=== PATIENT | female | born 1985 | race Caucasian/White ===

== ENCOUNTER → 2024-08-20 16:00 | Outpatient (REF) | payer BC, SELFPAY | LOC: PNTC 16:00 | PROVIDERS: ATTENDING PHYSICIAN Obstetrics & Gynecology | DX: O09.529 Supervision of elderly multigravida, unspecified trimester (principal); O14.90 Unspecified pre-eclampsia, unspecified trimester; O35.5XX0 Maternal care for (suspected) damage to fetus by drugs, not applicable or unspecified; O34.219 Maternal care for unspecified type scar from previous cesarean delivery | CPT/HCPCS: 76816 ==

== ENCOUNTER → 2024-08-31 08:01 | Outpatient (REF) | payer BC, SELFPAY | LOC: PNTC 08:01 | PROVIDERS: ATTENDING PHYSICIAN Obstetrics & Gynecology | DX: O43.219 Placenta accreta, unspecified trimester (principal) | CPT/HCPCS: 93976 ==

== ENCOUNTER → 2024-09-28 15:33 | Outpatient (REF) | payer BC, SELFPAY ==
[2024-09-28 16:10] LABS: % Basophils 0.1 % (0-2); % Eosinophils 2.2 % (0-6); % Immature Granulocytes 0.6 % (0-0.5); % Lymphocytes 12.4 % (20.5-51.1); % Monocytes 4.7 % (1.7-9.3); Absolute Eosinophils 0.2 10^3/uL (0-0.7); Absolute Immature Granulocytes 0.1 10^3/uL (0-0.05); Absolute Lymphocytes 1.2 10^3/uL (1.2-3.4); Absolute Monocytes 0.5 10^3/uL (0.1-0.6); Absolute Neutrophils 7.8 10^3/uL (1.4-6.5); Hematocrit 31.6 % (37.0-47.0); Hemoglobin 9.3 g/dL (12.0-16.0); Mean Corp Hgb Conc. 29.4 g/dL (33.0-37.0); Mean Corpuscular Hgb 22.1 pg (27.0-31.0); Mean Corpuscular Volume 75.1 fL (81.0-99.0); Mean Platelet Volume 11.3 fL (7.4-10.4); Nucleated Red Blood Cells % 0 %; Platelet Count 217 10^3/uL (130-400); Red Blood Cell Count 4.21 10^6/uL (4.20-5.40); Red Cell Dist. Width 16.7 % (11.5-14.5); White Blood Cell Count 9.8 10^3/uL (4.8-10.8)
== END ==
LOC: OIDL 15:33
PROVIDERS: ATTENDING PHYSICIAN Internal Medicine Hematology & Oncology
DX: D64.9 Anemia, unspecified (principal)
CPT/HCPCS: 85025

== ENCOUNTER → 2024-09-28 16:53 | Outpatient (REF) | payer BC, SELFPAY | LOC: PNTC 16:53 | PROVIDERS: ATTENDING PHYSICIAN Obstetrics & Gynecology | DX: O09.529 Supervision of elderly multigravida, unspecified trimester (principal); O14.90 Unspecified pre-eclampsia, unspecified trimester; O35.5XX0 Maternal care for (suspected) damage to fetus by drugs, not applicable or unspecified; O34.219 Maternal care for unspecified type scar from previous cesarean delivery | CPT/HCPCS: 76816; 93976 ==

== ENCOUNTER → 2024-10-19 15:53 | Outpatient (REF) | payer BC, SELFPAY ==
[2024-10-19 15:03] LABS: % Basophils 0.3 % (0-2); % Eosinophils 2.2 % (0-6); % Immature Granulocytes 0.3 % (0-0.5); % Lymphocytes 14.1 % (20.5-51.1); % Monocytes 5.1 % (1.7-9.3); Absolute Eosinophils 0.1 10^3/uL (0-0.7); Absolute Lymphocytes 0.9 10^3/uL (1.2-3.4); Absolute Monocytes 0.3 10^3/uL (0.1-0.6); Absolute Neutrophils 4.9 10^3/uL (1.4-6.5); Hematocrit 34.1 % (37.0-47.0); Hemoglobin 10.6 g/dL (12.0-16.0); Mean Corp Hgb Conc. 31.1 g/dL (33.0-37.0); Mean Corpuscular Hgb 23.9 pg (27.0-31.0); Platelet Count 179 10^3/uL (130-400); Red Blood Cell Count 4.43 10^6/uL (4.20-5.40); Red Cell Dist. Width 21.6 % (11.5-14.5); White Blood Cell Count 6.3 10^3/uL (4.8-10.8)
== END ==
LOC: OIDL 15:53
PROVIDERS: ATTENDING PHYSICIAN Internal Medicine Hematology & Oncology
DX: D64.9 Anemia, unspecified (principal)
CPT/HCPCS: 85025

== ENCOUNTER 2024-10-30 19:27 | Observation (INO) | payer BC, SELFPAY ==
[2024-10-30 19:53] VITALS: BP 117/84; BMI 37.0
== END 2024-10-30 22:48 | disposition home or self-care (01) ==
LOC: LDRP 19:27
PROVIDERS: ADMITTING PHYSICIAN Obstetrics & Gynecology
DX: O47.1 False labor at or after 37 completed weeks of gestation (principal); Z3A.38 38 weeks gestation of pregnancy; O99.013 Anemia complicating pregnancy, third trimester; D64.9 Anemia, unspecified; O99.820 Streptococcus B carrier state complicating pregnancy; O09.43 Supervision of pregnancy with grand multiparity, third trimester
CPT/HCPCS: 59899; G0378

== ENCOUNTER 2024-11-07 07:23 | Inpatient (IN) | payer BC, SELFPAY ==
[2024-11-07 07:39] VITALS: BP 123/90; BMI 37.2
[2024-11-07] MEDS: PENICILLIN 110 UNITS IV (08:09)
[2024-11-07] MEDS: LR 1000 IV ×3 (08:09→14:35)
[2024-11-07 08:31] LABS: % Basophils 0.2 % (0-2); % Immature Granulocytes 0.3 % (0-0.5); % Lymphocytes 17.5 % (20.5-51.1); % Monocytes 5.3 % (1.7-9.3); % Neutrophils 73.7 % (42.2-75.2); Absolute Eosinophils 0.2 10^3/uL (0-0.7); Absolute Lymphocytes 1.2 10^3/uL (1.2-3.4); Absolute Monocytes 0.4 10^3/uL (0.1-0.6); Absolute Neutrophils 4.8 10^3/uL (1.4-6.5); Hematocrit 35.2 % (37.0-47.0); Hemoglobin 11.1 g/dL (12.0-16.0); Mean Corp Hgb Conc. 31.5 g/dL (33.0-37.0); Mean Corpuscular Hgb 25.1 pg (27.0-31.0); Mean Corpuscular Volume 79.5 fL (81.0-99.0); Nucleated Red Blood Cells % 0 %; Platelet Count 141 10^3/uL (130-400); Red Blood Cell Count 4.43 10^6/uL (4.20-5.40); Red Cell Dist. Width 24.9 % (11.5-14.5); White Blood Cell Count 6.6 10^3/uL (4.8-10.8)
[2024-11-07 08:55] LABS: Anisocytosis 1+; Hypochromasia 1+; Normal RBC Morphology No; Ovalocytes 1+; Polychromasia 1+
[2024-11-07] MEDS: PITOCIN 30 UNITS/NSS 500 ML IV (09:11)
[2024-11-07 10:06] LABS: ALT (SGPT) 67 U/L (0-35); AST (SGOT) 65 U/L (14-36); Albumin 3.6 g/dl (3.5-5.0); Alkaline Phosphatase 252 U/L (38-126); Blood Urea Nitrogen 6 mg/dl (7-17); Calcium 9.2 mg/dl (8.4-10.2); Carbon Dioxide 17 mmol/L (22-30); Chloride 105 mmol/L (98-107); Estimated Creatinine Clearance > 125 ml/min; Glucose 95 mg/dl (70-99); Potassium 4.4 mmol/L (3.5-5.1); Sodium 134 mmol/L (135-145); Total Bilirubin 0.3 mg/dl (0.2-1.3); Total Protein 6.1 g/dl (6.3-8.2); eGFR > 60.00
[2024-11-07] MEDS: PENICILLIN 55 UNITS IV (12:03)
[2024-11-07] MEDS: METHERGINE INJECTION 0.2 MG IM (14:28)
[2024-11-07] MEDS: TRANEXAMIC ACID 100 IV (14:33)
[2024-11-07] MEDS: MOTRIN 600 MG PO (16:49)
[2024-11-08 04:23] LABS: Hematocrit 32.2 % (37.0-47.0); Hemoglobin 10.1 g/dL (12.0-16.0)
[2024-11-08 04:31] LABS: ALT (SGPT) 46 U/L (0-35); AST (SGOT) 44 U/L (14-36)
[2024-11-08] MEDS: LEXAPRO 20 MG PO (08:32)
[2024-11-08] MEDS: PRENATAL PLUS 1 TABLET PO (08:32)
[2024-11-08] MEDS: WELLBUTRIN XL (24 hour extended release) 300 MG PO (08:32)
[2024-11-08] MEDS: SENOKOT-S 1 TABLET PO (10:02)
[2024-11-08] MEDS: MOTRIN 600 MG PO (20:38)
[2024-11-09] MEDS: PRENATAL PLUS 1 TABLET PO (08:01)
[2024-11-09] MEDS: WELLBUTRIN XL (24 hour extended release) 300 MG PO (08:01)
[2024-11-09] MEDS: LEXAPRO 20 MG PO (08:01)
[2024-11-09] MEDS: TRANDATE 200 MG PO (08:33)
[2024-11-10 16:06] LABS: Syphilis/T. pallidum Ab Reflex Negative (Negative)
== END 2024-11-09 14:24 | disposition home or self-care (01) | DRG 807 ==
LOC: LDRP 07:23
PROVIDERS: ADMITTING PHYSICIAN Obstetrics & Gynecology
PROC: 10907ZC Drainage of Amniotic Fluid, Therapeutic from Products of Conception, Via Natural or Artificial Opening (ICD-10-PCS; 2024-11-07)
PROC: 10E0XZZ Delivery of Products of Conception, External Approach (ICD-10-PCS; 2024-11-07)
PROC: 3E033VJ Introduction of Other Hormone into Peripheral Vein, Percutaneous Approach (ICD-10-PCS; 2024-11-07)
DX: O99.824 Streptococcus B carrier state complicating childbirth (principal); Z37.0 Single live birth; Z3A.39 39 weeks gestation of pregnancy; O77.0 Labor and delivery complicated by meconium in amniotic fluid; O14.04 Mild to moderate pre-eclampsia, complicating childbirth
CPT/HCPCS: 88307; 80053; 84450; 84460; 85014; 85018; 85025; 86780; 86850; 86900; 86901

== ENCOUNTER 2025-04-02 06:09 | Day surgery (SDC) | payer BC, SELFPAY ==
[2025-03-17 10:12] VITALS: BMI 32.0
[2025-03-17 11:27] LABS: Blood Urea Nitrogen 9 mg/dl (7-17); Calcium 9.9 mg/dl (8.4-10.2); Carbon Dioxide 29 mmol/L (22-30); Chloride 100 mmol/L (98-107); Estimated Creatinine Clearance 92 ml/min; Glucose 80 mg/dl (70-99); Potassium 4.9 mmol/L (3.5-5.1); Sodium 138 mmol/L (135-145); eGFR > 60.00
[2025-03-17 12:11] LABS: % Basophils 0.6 % (0-2); % Eosinophils 7.3 % (0-6); % Immature Granulocytes 0.2 % (0-0.5); % Lymphocytes 23.8 % (20.5-51.1); % Monocytes 6.3 % (1.7-9.3); % Neutrophils 61.8 % (42.2-75.2); Absolute Eosinophils 0.3 10^3/uL (0-0.7); Absolute Lymphocytes 1.1 10^3/uL (1.2-3.4); Absolute Monocytes 0.3 10^3/uL (0.1-0.6); Absolute Neutrophils 2.9 10^3/uL (1.4-6.5); Hematocrit 38.9 % (37.0-47.0); Hemoglobin 13.3 g/dL (12.0-16.0); Mean Corp Hgb Conc. 34.2 g/dL (33.0-37.0); Mean Corpuscular Hgb 28.9 pg (27.0-31.0); Mean Corpuscular Volume 84.6 fL (81.0-99.0); Mean Platelet Volume 11.7 fL (7.4-10.4); Nucleated Red Blood Cells % 0 %; Platelet Count 245 10^3/uL (130-400); Red Cell Dist. Width 14.6 % (11.5-14.5); White Blood Cell Count 4.6 10^3/uL (4.8-10.8)
[2025-04-02] VITALS (11 sets, daily range): BP systolic 88–127; BP diastolic 48–82; BMI 32.0
[2025-04-02] MEDS: TYLENOL 1000 MG PO (06:54)
[2025-04-02] MEDS: NEURONTIN 100 MG PO (06:54)
[2025-04-02] MEDS: NORMOSOL-R/PLASMALYTE-A 1000 IV (07:05)
[2025-04-02] MEDS: SUBLIMAZE 25 MCG IV ×2 (09:13→09:24)
== END 2025-04-02 10:50 | disposition home or self-care (01) ==
LOC: SDS 06:09
PROVIDERS: ATTENDING PHYSICIAN Obstetrics & Gynecology; FAMILY PHYSICIAN Nurse Practitioner Family
DX: N72 Inflammatory disease of cervix uteri (principal); N92.0 Excessive and frequent menstruation with regular cycle
CPT/HCPCS: 58558; 88305; 88307; 36415; 80048; 85025; 86850; 86900; 86901

== ENCOUNTER 2025-05-14 06:36 | Day surgery (SDC) | payer BC, SELFPAY ==
[2025-05-05 09:41] LABS: Hematocrit 36.7 % (37.0-47.0); Hemoglobin 11.8 g/dL (12.0-16.0); Mean Corp Hgb Conc. 32.2 g/dL (33.0-37.0); Mean Corpuscular Volume 88.0 fL (81.0-99.0); Nucleated Red Blood Cells % 0 %; Platelet Count 214 10^3/uL (130-400); Red Cell Dist. Width 13.5 % (11.5-14.5)
[2025-05-05 10:14] LABS: Blood Urea Nitrogen 5 mg/dl (7-17); Calcium 9.0 mg/dl (8.4-10.2); Carbon Dioxide 22 mmol/L (22-30); Chloride 108 mmol/L (98-107); Glucose 71 mg/dl (70-99); Potassium 4.9 mmol/L (3.5-5.1); Sodium 139 mmol/L (135-145); eGFR > 60.00
[2025-05-05 10:24] LABS: Beta HCG Quantitative < 2.39 mIU/ml
[2025-05-05 13:24] VITALS: BMI 29.8
[2025-05-14] VITALS (9 sets, daily range): BP systolic 110–139; BP diastolic 73–90; BMI 29.8
[2025-05-14] MEDS: NORMOSOL-R/PLASMALYTE-A 1000 IV (11:02)
[2025-05-14] MEDS: TYLENOL 1000 MG PO (11:02)
[2025-05-14] MEDS: NEURONTIN 300 MG PO (11:02)
[2025-05-14] MEDS: TRANSDERM-SCOP 1 PATCH TRANSDERM (11:22)
[2025-05-14] MEDS: HEPARIN 5000 UNITS SC (11:24)
[2025-05-14] MEDS: DILAUDID 0.5 MG IV (15:00)
[2025-05-14] MEDS: DILAUDID 0.25 MG IV ×3 (15:12→15:44)
--- NOTE | 2025-05-14 15:14 | W.IMMPOSTOP ---
Surgical Immed Post Op Note
-
Primary Surgeon: Madison Duque DO
Can Patcher: TALIB Jesus
Pre-op Diagnosis: Menorrhagia, recurrent cervical dysplasia (status post LEEP 03/2025)
Post-op Diagnosis: Menorrhagia, recurrent cervical dysplasia (status post LEEP 03/2025), omental adhesions
Procedure Performed: Robotic total laparoscopic hysterectomy bilateral salpingectomy, lysis of adhesions
Anesthesia Type: General ET, Dr. Garland
Specimen / Cultures: Uterus, cervix, bilateral fallopian tubes
Estimated Blood Loss: 20 mL
Urine output: 1000 mL of clear urine (methylene blue noted)
Complications: None
Operative Findings: Uterus sounded to 8 cm, normal in appearance. Normal-appearing bilateral fallopian tubes and ovaries.
Small 2 cm omental adhesion to the anterior abdominal wall-containing no bowel. This was lysed.
Counts correct x 2.
[2025-05-14] MEDS: ROXICODONE 5 MG PO (16:51)
== END 2025-05-14 17:04 | disposition home or self-care (01) ==
LOC: SDS 06:36
PROVIDERS: ATTENDING PHYSICIAN Obstetrics & Gynecology; FAMILY PHYSICIAN Nurse Practitioner Family
DX: N72 Inflammatory disease of cervix uteri (principal); N83.8 Other noninflammatory disorders of ovary, fallopian tube and broad ligament; N92.0 Excessive and frequent menstruation with regular cycle; K66.0 Peritoneal adhesions (postprocedural) (postinfection); Z87.410 Personal history of cervical dysplasia; Z98.890 Other specified postprocedural states
CPT/HCPCS: 58571; 36415; 80048; 84702; 85025; 86850; 86900; 86901; 88307